=== PATIENT | male | born 1960 | race Caucasian/White ===

== ENCOUNTER 2017-11-13 11:56 | Emergency (ER) | payer SELFPAY ==
[~2017-11-13] VITALS: Ht 170.2 cm; Wt 87.7 kg
[2017-11-13 11:57] VITALS: BP 199/106; PULSE 67; RESP 16; TEMP 98.4; O2SAT 100
[2017-11-13] MEDS ORDERED: oxyCODONE/ACETAMINOPHEN 5 MG/325 MG TAB PO ONE (12:45)
[2017-11-13] MEDS ORDERED: cloNIDine HCL 0.2 MG TAB PO ONE (12:45)
--- NOTE | 2017-11-13 12:49 | PD ---
HPI Chief Complaint: Headache Time Seen by Provider: 12:26 Travel History International Travel<30 days: No Contact w/Intl Traveler<30days: No Traveled to known affect area: No History of Present Illness HPI This patient complains of bilateral frontal headache. Duration one week. Denies thunderclap onset or head injury or fever. He's been having very high blood pressures lately. He is afraid of running out of his blood pressure medications and since he has no local physician he's been using them only intermittently. Current blood pressures 200 systolic. Severity of symptoms is moderate. No alleviating factors. Symptoms exacerbated by blood pressure medication noncompliance. PFSH Past Medical History Cardiovascular Problems: Yes (HTN) Social History Alcohol Use: No Tobacco Use: No Substance Use: No Allergies-Medications (Allergen,Severity, Reaction): Coded Allergies: dextromethorphan (Verified Adverse Reaction, Intermediate, VOMITING, ) diphenhydramine (Verified Adverse Reaction, Intermediate, VOMITING, ) guaifenesin (Verified Adverse Reaction, Intermediate, VOMITING, 11/13/17) phenylephrine (Verified Adverse Reaction, Intermediate, VOMITING, 11/13/17) pseudoephedrine (Verified Adverse Reaction, Intermediate, VOMITING, ) Reported Meds & Prescriptions Reported Meds & Active Scripts Active Chlorthalidone 25 Mg Tab 25 Mg PO DAILY Review of Systems General / Constitutional: No: Fever Eyes: No: Visual changes HENT: Positive: Headaches Cardiovascular: No: Chest Pain or Discomfort Respiratory: No: Shortness of Breath Gastrointestinal: No: Abdominal Pain Genitourinary: No: Dysuria Musculoskeletal: No: Pain Skin: No Rash Neurologic: Positive: Headache, No: Weakness Psychiatric: No: Depression Endocrine: No: Polydipsia Hematologic/Lymphatic: No: Easy Bruising Physical Exam Narrative GENERAL: Well-nourished, well-developed patient in no apparent distress. SKIN: Focused skin assessment reveals no rash and nodules. Skin is Warm and dry. HEAD: Atraumatic. Normocephalic. EYES: Pupils equal and round. No scleral icterus. No injection or drainage. ENT: No nasal bleeding or discharge. Mucous membranes pink and moist. NECK: Trachea midline. No JVD. No meningeal signs CARDIOVASCULAR: Regular rate and rhythm. No murmur appreciated. RESPIRATORY: No accessory muscle use. Clear to auscultation. Breath sounds equal bilaterally. GASTROINTESTINAL: Abdomen soft, non-tender, nondistended. Hepatic and splenic margins not palpable. MUSCULOSKELETAL: No obvious deformities. No clubbing. No cyanosis. No edema. NEUROLOGICAL: Awake and alert. No obvious cranial nerve deficits. Motor grossly within normal limits. Normal speech. PSYCHIATRIC: Appropriate mood and affect; insight and judgment normal. Data Data Last Documented VS Vital Signs Date Time Temp Pulse Resp B/P (MAP) Pulse Ox O2 Delivery O2 Flow Rate FiO2 11/13/17 13:54 130/62 (84) 11/13/17 13:00 62 18 100 Room Air 11/13/17 11:57 98.4 Orders Orders Oxycodone-Acetamin 5-325 Mg (Percocet (11/13/17 12:45) Clonidine (Catapres) (11/13/17 12:45) Ct Brain W/O Iv Contrast(Rout) (11/13/17 ) [facility] Medical Decision Making Medical Screen Exam Complete: Yes Emergency Medical Condition: Yes Medical Record Reviewed: Yes Differential Diagnosis Differential diagnosis includes migraine, tension headache, cluster headache, meningitis. Narrative Course I have reviewed the patient's electronic medical record. Patient is neurologically intact. Presentation is not consistent with subarachnoid hemorrhage Brain CT is normal I gave him a dose of clonidine, current systolic is 200 I gave him 2 pain pills. Recheck reveals 130/70 blood pressure I wrote him one month of chlorthalidone He is advised to check and record his blood pressure daily and get primary care follow-up Diagnosis Primary Impression: Accelerated hypertension Additional Impression: Headache Qualified Codes: R51 - Headache Additional Instructions: Check and record blood pressure daily The patient was advised to follow up with their physician and return if they worsen. Med/Other Pt SpecificInfo: Prescription(s) given Scripts Chlorthalidone (Chlorthalidone) 25 Mg Tab 25 MG PO DAILY, #30 TAB 0 Refills Prov: Oscar Hernandez MD 11/13/17 Disposition: 01 DISCHARGE HOME Condition: Stable Oscar Hernandez MD Nov 13, 2017 12:49
[2017-11-13 13:00] VITALS: BP 182/96; PULSE 63; RESP 18; O2SAT 100
--- NOTE | 2017-11-13 13:38 | RADRPT ---
EXAM DATE/TIME: 11/13/2017 13:25 [place] COMPARISON: No previous studies available for comparison. INDICATIONS : Headaches for two weeks. RADIATION DOSE: 38.35 CTDIvol (mGy) MEDICAL HISTORY : Hypertension. SURGICAL HISTORY : None. ENCOUNTER: Initial ACUITY: 1 day PAIN SCALE: 7/10 LOCATION: Bilateral chest TECHNIQUE: Multiple contiguous axial images were obtained of the head. Using automated exposure control and adj ustment of the mA and/or kV according to patient size, radiation dose was kept as low as reasonably a chievable to obtain optimal diagnostic quality images. DICOM format image data is available electro nically for review and comparison. FINDINGS: CEREBRUM: The ventricles are normal for age. No evidence of midline shift, mass lesion, hemorrhage or acute in farction. No extra-axial fluid collections are seen. POSTERIOR FOSSA: The cerebellum and brainstem are intact. The 4th ventricle is midline. The cerebellopontine angle i s unremarkable. EXTRACRANIAL: The visualized portion of the orbits is intact. There is mucosal thickening and/or opacification in r ight ethmoid and frontal sinus compartments SKULL: The calvaria is intact. No evidence of skull fracture. CONCLUSION: Intracranially negative. Mucosal thickening and/or opacification in the right ethmoid and frontal sinus air cells. Madan Marinelli MD on November 13, 2017 at 13:34 Board Certified Radiologist. This report was verified electronically.
[2017-11-13 13:54] VITALS: BP 130/62
[2017-11-13] MEDS ORDERED: CHLO25TA2 PO (14:57)
== END 2017-11-13 15:24 | disposition home or self-care (01) ==
LOC: NEPD 11:56
DX: I10 Essential (primary) hypertension (principal); R51 Headache; Z91.14 Patient's other noncompliance with medication regimen
CPT/HCPCS: 70450